=== PATIENT | male | born 1975 | race Caucasian/White ===

== ENCOUNTER → 2017-10-16 18:09 | Emergency (ER) | payer OTHER ==
[~2017-10-16] VITALS: Ht 188 cm; Wt 121.7 kg
[2017-10-16 18:18] VITALS: BP 123/79
[2017-10-16 18:33] LABS: HEMATOCRIT 45.5 % (38.0-50.0); HEMOGLOBIN 16.5 G/DL (12.5-16.6); MCH 30.9 PG (29.0-34.0); MCHC 36.3 G/DL (30.0-36.0); MCV 85.2 FL (86-99); PLATELET COUNT 144 K/uL (156-360); RBC DIS.WIDTH-CV 12.4 % (11.8-14.6); RBC DIS.WIDTH-SD 38.5 % (39-53); RED BLOOD COUNT 5.34 M/uL (4.00-5.50); WHITE BLOOD COUNT 7.6 K/uL (4.1-10.2)
[2017-10-16 18:44] LABS: CHLORIDE 105 mEq/L (99-109); SODIUM 140 mEq/L (136-147)
[2017-10-16 18:45] LABS: GLUCOSE 90 mg/dL (70-99)
[2017-10-16 18:49] LABS: CREATININE 0.9 mg/dL (0.6-1.3); GFR ESTIMATE (CALCULATED) > 59 mL/min/ (58.99-99999)
[2017-10-16 18:50] LABS: UREA NITROGEN (BUN) 22 mg/dL (9-23)
[2017-10-16 18:53] LABS: TROP-I INTERPRETATION NEGATIVE; TROPONIN-I 0.19 ng/mL (0.0-0.30)
== END | disposition left against medical advice (07) ==
LOC: EME 18:09
DX: R07.89 Other chest pain (principal); R06.02 Shortness of breath; Z53.21 Procedure and treatment not carried out due to patient leaving prior to being seen by health care provider
CPT/HCPCS: 71046; 80048; 84484; 85027; 93005